=== PATIENT | male | born 1940 | race Caucasian/White ===

== ENCOUNTER 2018-12-07 11:33 | Emergency (ER) | payer OTHER ==
[~2018-12-07] VITALS: Ht 177.8 cm; Wt 68.0 kg
[~2018-12-07 11:33] MED LIST: CLONAZEPAM0.5 MG; ZITHROMAX TRI-500 MG PO; [UNRECOGNIZED DRUG - OTHER]
[2018-12-07] MEDS ORDERED: LODOSYN25 MG (11:40)
== END 2018-12-07 19:51 | disposition home or self-care (01) ==
LOC: ER 11:33
DX: G12.21 Amyotrophic lateral sclerosis (principal); F41.0 Panic disorder [episodic paroxysmal anxiety]